=== PATIENT | female | born 1990 | race Caucasian/White ===

== ENCOUNTER 2019-06-28 10:29 | Emergency (ER) | payer MEDICAID ==
[~2019-06-28] VITALS: Ht 160 cm; Wt 85.7 kg
[2019-06-28 10:37] VITALS: Ht 160 cm; Wt 85.7 kg
[2019-06-28 12:09] VITALS: BP 115/68
== END 2019-06-28 12:09 | disposition home or self-care (01) ==
LOC: ED 10:29
DX: S61.300A Unspecified open wound of right index finger with damage to nail, initial encounter (principal); X58.XXXA Exposure to other specified factors, initial encounter; Y93.89 Activity, other specified; Y92.89 Other specified places as the place of occurrence of the external cause; Y99.8 Other external cause status